=== PATIENT | female | born 1980 | race Caucasian/White ===

== ENCOUNTER 2018-08-11 04:40 | Emergency (ER) | payer OTHER ==
[~2018-08-11] VITALS: Ht 167.6 cm; Wt 102.1 kg
[2018-08-11] MEDS ORDERED: METFORMIN HCL500 MG PO (04:50)
[2018-08-11] MEDS ORDERED: LISINOPRIL10 MG PO (04:50)
[2018-08-11] MEDS ORDERED: ZOCOR20 MG PO (04:50)
[2018-08-11] MEDS ORDERED: PRILOSEC 20 MG20 MG PO (04:54)
[2018-08-11] MEDS ORDERED: CYMBALTA20 MG PO (04:56)
[2018-08-11 05:23] LABS: HEMATOCRIT 39.9 % (37.0-47.0); HEMOGLOBIN 13.2 gm/dL (12.0-15.0); MCH 27.8 pg (26.0-34.0); MCHC 33.2 g/dL (28.0-37.0); MCV 83.7 fL (80.0-100.0); MPV 7.4 fl. (7.2-11.1); NUCLEATED RBCS 0 /100WBC; PLATELET COUNT* 298 thou/uL (150-400); RBC 4.76 mil/uL (4.20-5.00); RDW-CV 13.4 % (10.5-14.5)
[2018-08-11 05:33] LABS: ANION GAP 8 mmol/L (7-16); BUN 15 mg/dL (7-18); CALCIUM 8.9 mg/dL (8.5-10.1); CHLORIDE 104 mmol/L (98-107); CO2 28 mmol/L (21-32); CREATININE 0.9 mg/dL (0.6-1.3); GLUCOSE 212 mg/dL (70-99); POTASSIUM 4.2 mmol/L (3.5-5.1); SODIUM 140 mmol/L (136-145)
[2018-08-11 05:42] LABS: ALBUMIN 3.6 g/dL (3.4-5.0); ALKALINE PHOSPHATASE 60 U/L (46-116); LIPASE 112 U/L (73-393); SGOT 16 U/L (15-37); SGPT 25 U/L (30-65); TOTAL BILIRUBIN 0.2 mg/dL (<0.1-1.0); TOTAL PROTEIN 7.4 g/dL (6.4-8.2); TROPONIN-I LEVEL <0.06 ng/mL (<0.06)
[2018-08-11 06:40] LABS: ABSOLUTE EOSINOPHILS 1.1 thou/uL (0.0-0.7); ABSOLUTE LYMPHOCYTES 1.2 thou/uL (0.8-5.3); ABSOLUTE NEUTROPHILS 7.7 thou/uL (1.6-8.1); PLATELET ESTIMATE ADEQUATE
[2018-08-11] MEDS ORDERED: ZOFRAN ODT4 MG DISSOLVE (06:48)
[2018-08-11 07:06] VITALS: BP 133/79
--- NOTE | 2018-08-12 14:27 | EKG ---
[place] [address] ELECTROCARDIOGRAM REPORT Name: BEAN WOMACK Room: [facility]#: [id number] Admission: 08/11/18 Attend Phys: Discharge: 08/11/18 Date of : 80 Report #: [id number] THIS REPORT FOR: //name// [facility] ED Test Date: 2018-08-11 Test Time: 05:05:20 Pat Name: BEAN WOMACK Department: Room: Gender: F Clinical Reimbursement Specialist: : 1980 Requested By: Gideon Dey Order Number: [id number] MD: Anuel Clayton Measurements Intervals [place] Rate: 59 P: 61 ID: 127 QRS: 15 QRSD: 97 T: 13 QT: 452 QTc: 448 Interpretive Statements Sinus rhythm Borderline T wave abnormalities No previous ECG available for comparison Electronically Signed On 08-12-2018 14:27:33 CDT by Anuel Clayton [email or web address] <ELECTRONICALLY SIGNED> By: Anuel Clayton MD, [facility] 08/12/18 [id number] [id number] Anuel Clayton MD, FACC /EPI
== END 2018-08-11 07:06 | disposition home or self-care (01) ==
LOC: M.ERS 04:40
PROVIDERS: Emergency Medicine Emergency Medical Services
DX: K52.9 Noninfective gastroenteritis and colitis, unspecified (principal); E11.9 Type 2 diabetes mellitus without complications

== ENCOUNTER 2019-01-23 09:35 | Emergency (ER) | payer OTHER ==
[~2019-01-23] VITALS: Ht 170.2 cm; Wt 104.3 kg
[~2019-01-23 09:35] MED LIST: CYMBALTA20 MG PO; LISINOPRIL10 MG PO; METFORMIN HCL500 MG PO; PRILOSEC 20 MG20 MG PO; ZOCOR20 MG PO; ZOFRAN ODT4 MG DISSOLVE
[2019-01-23 10:13] LABS: ABSOLUTE BASOPHILS 0.1 thou/uL (0.0-0.2); ABSOLUTE EOSINOPHILS 0.2 thou/uL (0.0-0.7); ABSOLUTE LYMPHOCYTES 1.6 thou/uL (0.8-5.3); ABSOLUTE MONOCYTES 0.5 thou/uL (0.0-1.2); ABSOLUTE NEUTROPHILS 5.7 thou/uL (1.6-8.1); BASOPHILS 0.8 %; HEMATOCRIT 42.4 % (37.0-47.0); HEMOGLOBIN 14.1 gm/dL (12.0-15.0); LYMPHOCYTES 20.1 %; MCH 27.4 pg (26.0-34.0); MCHC 33.3 g/dL (28.0-37.0); MCV 82.2 fL (80.0-100.0); MPV 7.5 fl. (7.2-11.1); NUCLEATED RBCS 0 /100WBC; PLATELET COUNT* 372 thou/uL (150-400); POLYS 71.1 %; RBC 5.16 mil/uL (4.20-5.00); RDW-CV 13.7 % (10.5-14.5)
[2019-01-23 10:14] LABS: URINE BLOOD 3+ (Negative); URINE CLARITY SL CLOUDY; URINE COLOR YELLOW; URINE GLUCOSE-RANDOM NEGATIVE (Negative); URINE KETONES 1+ (Negative); URINE LEUKOCYTES-REFLEX 1+ (Negative); URINE NITRITE-REFLEX NEGATIVE (Negative); URINE PROTEIN 2+ (Negative); URINE SPECIFIC GRAVITY >= 1.030 (1.005-1.030); URINE UROBILINOGEN 0.2 E.U./dl (0.2-1.0)
[2019-01-23 10:19] LABS: URINE BILIRUBIN 1+ (Negative)
[2019-01-23 10:20] LABS: ICTOTEST (BILI CONFIRMATORY) Negative (Negative)
[2019-01-23 10:22] LABS: CALCIUM 9.5 mg/dL (8.5-10.1); CREATININE 1.2 mg/dL (0.6-1.3); POTASSIUM 3.6 mmol/L (3.5-5.1)
[2019-01-23 10:25] LABS: SQUAMOUS >10 Many /LPF (0-3); URINE RBC 0-2 Rare /HPF (0-2); URINE WBC-REFLEX 6-15 Few /HPF (0-5)
[2019-01-23 10:26] LABS: ALBUMIN 4.1 g/dL (3.4-5.0); BACTERIA-REFLEX >30 Many /HPF (None Seen); CASTS None Seen /LPF (None Seen); CRYSTALS None Seen /LPF (None Seen); MUCUS 0-3 Light strn/LPF (None Seen); TOTAL BILIRUBIN 0.6 mg/dL (<0.1-1.0); TOTAL PROTEIN 8.5 g/dL (6.4-8.2)
[2019-01-23] MEDS ORDERED: ONDANSETRON HCL4 M2 PO (11:59)
[2019-01-23] MEDS ORDERED: BENTYL 20 MG TA20 M1 PO (11:59)
[2019-01-23] MEDS ORDERED: MACROBID 100 M100 M2 PO (12:03)
[2019-01-23 12:25] VITALS: BP 151/75
--- NOTE | 2019-01-23 15:52 | EKG ---
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: : 1980 Requested By: Lizette Dyson Order Number: [id number] MD: Damaso Burris Measurements Intervals [place] Rate: 72 P: 50 UT: 128 QRS: 7 QRSD: 94 T: -5 QT: 413 QTc: 453 Interpretive Statements Sinus rhythm Borderline T abnormalities, inferior leads Compared to ECG 08/11/2018 05:05:20 No significant changes Electronically Signed On 01-23-2019 15:52:02 SOLE SCRAPER by Damaso Burris [email or web address] <ELECTRONICALLY SIGNED> By: Damaso Burris MD, [facility] 01/23/19 1552 D: [id number] Damaso Burris MD, FACC /EPI
== END 2019-01-23 12:31 | disposition home or self-care (01) ==
LOC: M.ERS 09:35
PROVIDERS: Nurse Practitioner Family
DX: K76.0 Fatty (change of) liver, not elsewhere classified (principal); N39.0 Urinary tract infection, site not specified; R11.2 Nausea with vomiting, unspecified; E11.9 Type 2 diabetes mellitus without complications; I10 Essential (primary) hypertension; E78.5 Hyperlipidemia, unspecified